=== PATIENT | female | born 1960 | race Caucasian/White ===

== ENCOUNTER 2024-03-20 06:19 | Day surgery (SDC) | payer BC ==
[2024-03-18 13:15] LABS: Absolute Eosinophils 0.1 K/uL (0-0.5); Absolute Lymphocytes (CBC) 2.2 K/uL (0.7-4.9); Absolute Monocytes 0.6 K/uL (0.1-1.3); Absolute Neutrophil 7.7 K/uL (1.8-8.0); Basophils % 0.3 % (0-1.3); Hematocrit 37.9 % (36.0-45.0); Hemoglobin 13.2 g/dL (12.0-15.0); Lymphocytes % 20.9 % (15.3-44.8); MCH 31.8 pg (27.0-35.0); MCHC 34.8 g/dL (32.0-36.0); MCV 91.4 fL (80-100); MPV 7.6 fL (7.6-11.3); Monocytes % 5.8 % (3.3-12.3); Platelets 303 thou/uL (152-406); RBC Red Blood Cell Count 4.15 M/uL (3.86-4.86); Red Cell Distribution Width 13.1 % (12.1-15.2)
[2024-03-18 13:25] LABS: Anion Gap 8.6 mEq/L (5.0-15.0); Potassium 4.6 mEq/L (3.5-5.1)
[2024-03-20] MEDS: NA CHLORIDE 0.9% 1,000 ML ONE (06:55)
[2024-03-20] MEDS: NA CHLORIDE 0.9% 50 ML ONE (07:00)
[2024-03-20] MEDS: CEFAZOLIN SODIUM 1 GM/VIAL ONE (07:00)
[2024-03-20] MEDS ORDERED: KETOROLAC 30 MG/ML INJ ONE (07:08)
[2024-03-20] MEDS ORDERED: LIDOCAINE 2% MPF 5 ML VIAL ONE (07:08)
[2024-03-20] MEDS ORDERED: ONDANSETRON 4 MG/2 ML VIAL ONE (07:08)
[2024-03-20] MEDS ORDERED: propofoL 200 MG/20 ML VIAL IV ONE (07:08)
[2024-03-20] MEDS ORDERED: MIDAZOLAM HCL 2 MG/2 ML INJ ONE (07:09)
[2024-03-20] MEDS ORDERED: FENTANYL CITR 100 MCG/2 ML ONE (07:09)
[2024-03-20] MEDS ORDERED: LIDOCAINE 1% 20 ML MDV ONE (07:18)
[2024-03-20] MEDS ORDERED: EPHEDRINE SULF 50 MG/ML VIAL ONE ×2 (08:02→08:17)
[2024-03-20] MEDS ORDERED: dexAMETHasone 10 MG/ML VIAL ONE (08:19)
[2024-03-20] MEDS: dexAMETHasone 10 MG/ML VIAL ONE (08:41)
[2024-03-20] MEDS: BUPIVACAINE 0.5% PF 10 ML VIAL ONE (08:43)
--- NOTE | 2024-03-20 09:11 | RAD REPORT ---
EXAM DESCRIPTION: RAD - Fluoroscopy <1 Hour - 03/20/2024 9:02 am CLINICAL HISTORY: Second metatarsal surgery FINDINGS: Three intraoperative fluoroscopic images obtained. Fluoroscopy time 0.3 minutes Foot exostosis surgery performed by Dr. Johnson
[2024-03-20] MEDS ORDERED: Ringers Lactate 1,000 ML IV ONE (09:18)
[2024-03-20] MEDS ORDERED: HYDROCODONE/APAP 5/325 MG TAB PO ONE (10:05)
[2024-03-20] MEDS: HYDROCODONE/APAP 5/325 MG TAB ONE (10:07)
[2024-03-20 10:20] VITALS: BP 104/60; TEMP 96.4; O2SAT 98
== END 2024-03-20 10:48 | disposition home or self-care (01) ==
LOC: OR 06:19
PROVIDERS: ATTEND Podiatrist Foot & Ankle Surgery
PROC: 0QBP0Z2 Excision of Left Metatarsal, Sesamoid Bone(s) 1st Toe, Open Approach (ICD-10-PCS; principal; 2024-03-20 07:30)
DX: M25.775 Osteophyte, left foot (principal)
CPT/HCPCS: 28122; 85025; 80048; 36415; 76000; J2704; J2001; J2250; J3010; J1100 ×2; J2405; J7120; J7030; J0690